=== PATIENT | female | born 1975 | race African-American/Black ===

== ENCOUNTER 2016-02-29 19:28 | Emergency (ER) | payer MEDICAID, OTHER ==
[~2016-02-29] VITALS: Ht 154.9 cm; Wt 90.7 kg
[~2016-02-29 19:28] MED LIST: CIPROFLOXACIN500 M2 ORAL; IBUPROFEN600 MG ORAL; IBUPROFEN600 MG PO; METOPROLOL SUC100 MG ORAL; NORCO 5-325 TA1 EACH ORAL; PEPCID20 MG ORAL; PHENAZOPYRIDIN100 MG ORAL; PROTONIX40 MG ORAL
[2016-02-29 20:25] VITALS: BP 154/92
[2016-02-29 20:30] VITALS: BP 154/92
--- NOTE | 2016-02-29 22:59 | Emergency Room Report ---
History of Present Illness General Chief Complaint: General Complaint Source: Patient Present Illness HPI Pt LWBS Allergies: Coded Allergies: MORPHINE (Verified Allergy, Severe, Anaphylaxis, 12/21/11) CEFOTAXIME (Verified Adverse Reaction, FEELS FAINT, 12/21/11) Patient History Last Menstrual Period: 02/11/16 Now: No Nursing Documentation-[facility] Past Medical History: No History, Except For Hx Hypertension: Yes Hx Asthma: Yes - RIGHT LOWER LEG SURGERY DUE TO FRACTURE Hx Gastrointestinal Problems: Yes - gastritis Physical Exam Vital Signs Date Time Temp Pulse Resp B/P Pulse Ox O2 Delivery O2 Flow Rate FiO2 02/29/16 20:06 97.3 85 14 166/96 99 Room Air Medical Decision Making PA Attestation Dr. Flaherty is my supervising physician. Patient management was discussed with my supervising physician ER Course Pt LWBS Last Vital Signs Date Time Temp Pulse Resp B/P Pulse Ox O2 Delivery O2 Flow Rate FiO2 02/29/16 20:25 97.1 82 13 154/92 98 Room Air Disposition: LEFT W/OUT BEING SEEN Condition: Unknown Referrals: [employer] (PCP) MARYBETH VELÁZQUEZ Feb 29, 2016 22:59
== END 2016-02-29 23:26 | disposition left against medical advice (07) ==
LOC: EMR 20:23
DX: Z53.21 Procedure and treatment not carried out due to patient leaving prior to being seen by health care provider (principal); I10 Essential (primary) hypertension; Z88.6 Allergy status to analgesic agent; Z88.8 Allergy status to other drugs, medicaments and biological substances
CPT/HCPCS: 99281